=== PATIENT | female | born 1950 | race Caucasian/White ===

== ENCOUNTER 2018-08-29 08:28 | Outpatient (CLI) | payer OTHER ==
--- NOTE | 2018-08-29 12:55 | MMO ---
Bilateral MAMMO Bilat Screen [facility]. CLINICAL HISTORY: Patient is 68 years old and is seen for screening. The patient has the following family history of breast cancer: maternal aunt, liver and colon. The patient has no personal history of cancer. VIEWS: The views performed were: bilateral craniocaudal with tomosynthesis and bilateral mediolateral oblique with tomosynthesis. MAMMOGRAM FINDINGS: There are scattered fibroglandular densities. There are benign appearing calcifications seen in both breasts. There are no suspicious masses, suspicious calcifications, or new areas of architectural distortion. IMPRESSION: THERE IS NO MAMMOGRAPHIC EVIDENCE OF MALIGNANCY. A ROUTINE FOLLOW-UP MAMMOGRAM IN 1 YEAR IS RECOMMENDED. THE RESULTS OF THIS EXAM WERE SENT TO THE PATIENT. ACR BI-RADS Category 2 - Benign finding MAMMOGRAPHY NOTE: 1. A negative mammogram report should not delay a biopsy if a dominant of clinically suspicious mass is present. 2. Approximately 10% to 15% of breast cancers are not detected by mammography. 3. Adenosis and dense breasts may obscure an underlying neoplasm.
== END 2018-08-29 08:29 | disposition home or self-care (01) ==
LOC: BICMAMMO 08:28
PROVIDERS: ATTEND Nurse Practitioner Family
DX: Z12.31 Encounter for screening mammogram for malignant neoplasm of breast (principal); Z80.3 Family history of malignant neoplasm of breast; Z80.0 Family history of malignant neoplasm of digestive organs
CPT/HCPCS: 77063; 77067

== ENCOUNTER 2019-02-13 09:44 | Outpatient (CLI) | payer OTHER ==
--- NOTE | 2019-02-13 10:10 | BD ---
EXAM: DEXA bone density examination HISTORY: 68-year-old postmenopausal female for screening COMPARISON: None FINDINGS: L1--bone mineral density 0.797 g/sq cm; T score -1.8 L2--bone mineral density 0.809 g/sq cm; T score -2.0 L3--bone mineral density 0.817 g/sq cm; T score -2.4 L4--bone mineral density 0.940 g/sq cm; T score -1.1 Total L1-L4--bone mineral density 0.849 g/sq cm; T score -1.8 Left femoral neck--bone mineral density0.597; T score -2.3 Total proximal left femur--bone mineral density 0.787; T score -1.3 IMPRESSION: Osteopenia This patient has a 10 year WHO fracture risk of a major osteoporotic fracture of 13% and of a hip fracture of 3.0%.
== END 2019-02-13 09:45 | disposition home or self-care (01) ==
LOC: BICMAMMO 09:44
PROVIDERS: ATTEND Nurse Practitioner Family
DX: Z13.820 Encounter for screening for osteoporosis (principal); M85.89 Other specified disorders of bone density and structure, multiple sites
CPT/HCPCS: 77080

== ENCOUNTER 2019-05-01 06:59 | Outpatient (CLI) | payer MEDICARE ==
--- NOTE | 2019-05-01 08:59 | ULT ---
COMPLETE SONOGRAM ABDOMEN: HISTORY: Upper abdomen pain. FINDINGS: The gallbladder has a normal appearance. The common duct is 0.4 cm. The liver is within normal limits . No free fluid. The spleen, kidneys and visualized portions of the abdominal aorta, IVC and pancreas are unremarkable . IMPRESSION: Normal examination. POS: TPC
== END 2019-05-01 07:00 | disposition home or self-care (01) ==
LOC: SCSULT 06:59
PROVIDERS: ATTEND Nurse Practitioner Family
DX: R10.13 Epigastric pain (principal)
CPT/HCPCS: 93975

== ENCOUNTER 2019-05-29 12:57 | Outpatient (CLI) | payer MEDICARE ==
--- NOTE | 2019-05-29 14:18 | CT ---
EXAM: CT Chest W WO Con PROVIDED CLINICAL HISTORY: Chest pain COMPARISON: None FINDINGS: The heart, pericardium and great vessels demonstrate an unremarkable CT appearance. There is no evidence for thoracic lymph node enlargement. The airway appears patent and of normal caliber. There is a 6 mm average axial dimension noncalcified left upper lobe pulmonary nodule laterally. The lungs are otherwise free of significant opacity. No pleural thickening, pleural fluid or pneumothorax apparent. The visualized portions of the upper abdomen demonstrate an unremarkable CT appearance. Small hiatal hernia. The osseous structures demonstrate no concerning lytic or blastic lesions. IMPRESSION: 6 mm average axial dimension left upper lobe pulmonary nodule. Follow-up chest CT in 6 months is obi mmended.
[2019-05-29] MEDS ORDERED: Iopamidol-370 76% 500 ML 1 ML ONE (16:18)
== END 2019-05-29 12:58 | disposition home or self-care (01) ==
LOC: BICCT 12:57
PROVIDERS: ATTEND Internal Medicine Cardiovascular Disease
DX: R07.9 Chest pain, unspecified (principal); R91.1 Solitary pulmonary nodule
CPT/HCPCS: 71270; 82565; Q9967

== ENCOUNTER 2019-11-29 10:00 | Outpatient (CLI) | payer MEDICARE ==
--- NOTE | 2019-11-29 13:21 | CT ---
CT CHEST WITH AND WITHOUT CONTRAST: Date: 11/29/2019 Multiplanar reconstruction. INDICATION: Follow-up pulmonary nodule. Comparison made to CT chest of 05/29/2019. FINDINGS: The 6.0 mm nodule in the peripheral left upper lobe is again seen and is stable. Lung donohue otherwise remain clear. Mild interstitial thickening in the periphery of both lungs is ag ain seen and stable. Slightly more prominent interstitial thickening in the posterior lung bases agai n noted. Mediastinum is unremarkable. There is a small sliding diaphragmatic hernia, which appears unchanged. Nonspecific axillary lymph nodes appear stable. Nonspecific mediastinal and hilar lymph nodes are unc hanged. Pulmonary arteries are well-opacified. There is no evidence of proximal pulmonary embolus. The thorac ic aorta is unremarkable. Images through upper abdomen unremarkable. Osseous structures unremarkable. IMPRESSION: 6.0 mm nodule in the peripheral left upper lobe remains stable. Recommend continued follow-up with re peat noncontrast chest CT in 6 months. POS: CIRILO
== END 2019-11-29 10:01 | disposition home or self-care (01) ==
LOC: BICCT 10:00
PROVIDERS: ATTEND Nurse Practitioner Family
DX: R91.1 Solitary pulmonary nodule (principal)
CPT/HCPCS: 71270; 82565

== ENCOUNTER 2020-02-08 13:39 | Outpatient (CLI) | payer MEDICARE ==
--- NOTE | 2020-02-08 15:37 | CT ---
Exam: Lumbar spine CT without contrast HISTORY: Intractable back pain. FINDINGS: 5 lumbar type vertebra. Lumbar spine vertebral body height is maintained. No fracture. No spondylolis thesis or spondylolysis. Appropriate signal intensity visualized paraspinal muscles. Appropriate signal intensity visualized s olid organs. There are scattered diverticulosis. No diverticulitis. Presacral fat is preserved. Sacral ala are preserved. Vacuum joint phenomenon in bilateral sacroiliac joints. Intact visualized b ame pelvis T12-L1: No significant central canal stenosis or significant neural foraminal narrowing L1-L2: No significant central canal stenosis or significant neural foraminal narrowing L2-L3: Minimal left right paracentral disc bulge. No significant central canal stenosis. Patent bilat eral neural foramina. L3-L4: Broad-based disc bulge, ligament flavum thickening and facet hypertrophy result in minimal jamari tral canal stenosis. Minimal bilateral neural foraminal narrowing L4-L5: Broad-based disc bulge, ligament flavum thickening and facet hypertrophy result in mild centra l canal stenosis. Mild bilateral foraminal narrowing due to disc material L5-S1: Broad-based disc bulge minimally contacts the traversing left and right S1 nerve roots. No sig nificant obscuration. No significant stenosis of the thecal sac. 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 IMPRESSION: 1. No fracture 2. Degenerative changes in the lumbar spine as described above 2. Abnormal hypodensity involving the central left aspect of the S2 vertebral body with extension to left neural foramen. Tarlov cyst is favored. Consider MRI of the sacrum. CODE T Transcribed Date/Time: 02/08/2020 4:53 PM
== END 2020-02-08 13:40 | disposition home or self-care (01) ==
LOC: SCSCT 13:39
PROVIDERS: ATTEND Nurse Practitioner Family
DX: M54.5 Low back pain (principal); M53.3 Sacrococcygeal disorders, not elsewhere classified; M47.816 Spondylosis without myelopathy or radiculopathy, lumbar region; R93.7 Abnormal findings on diagnostic imaging of other parts of musculoskeletal system
CPT/HCPCS: 72131

== ENCOUNTER 2020-03-07 12:14 | Outpatient (CLI) | payer MEDICARE ==
[~2020-03-07 12:14] MED LIST: Magnevist 469MG/ML 20 ML VIAL ONE
--- NOTE | 2020-03-07 14:50 | MRI ---
MRI Pelvis W WO Con History: Cholelithiasis. Sacral pain Comparison: Lumbar spine CT February 08, 2020 Findings: Bones: Left S2 perineural cyst measures 1.7 cm in AP dimension with a transverse dimension up to 2.5 cm in a craniocaudal dimension of 2 cm. No abnormal enhancement to suggest a nerve sheath tumor. The left S2 nerve root is compressed anteriorly by this perineural cyst. No other perineural cyst is appreciated. No acute fracture or malalignment. No marrow infiltrative process. Benign chondroid lesion intertrochanteric portion left femur. Intrapelvic soft tissues: Susceptibility from surgical clips along the left adnexa. No free fluid wit hin the pelvis. Tendons: Moderate tendinosis and undersurface partial tearing of both common hamstring tendons. The i liopsoas tendons are intact. Rectus femoris tendons are intact. Abductor tendons are intact. Muscles: Muscle signal and bulk is normal. Impression: 1. Relatively large left S2 perineural Tarlov cyst causing anterior nerve root displacement in the os seous neural foramina. 2. No acute fracture, malalignment, or stress edema of the pelvis. 3. Mild posterior degenerative disc space height loss at L5/S1 with disc bulge.
--- NOTE | 2020-03-07 14:56 | MRI ---
MRI LUMBAR SPINE WITH AND WITHOUT CONTRAST: DATE: 03/07/2020 HISTORY: 69-year-old female with severe low back pain radiating to bilateral lower extremities COMPARISON: None TECHNIQUE: Multiple sequences obtained in axial and sagittal planes, pre and post IV injection of gadolinium-bas ed contrast agent. FINDINGS: Vertebral body heights are maintained. Alignment is normal. Disc spaces are maintained. There is no c entral spinal canal stenosis at any level. No high-grade neural foraminal stenosis at any level. There is an approximately 2 x 2 x 1.5 cm left-sided Tarlov cyst at the S2 level. It abuts and mildly displaces the left exiting S2 nerve root. No associated enhancement. Bone marrow signal is normal. Conus medullaris terminates at L1-2. Cauda equina is arranged in a symmetrical, normal distribution t hroughout the thecal sac. There are low-grade degenerative facet changes at L3-4, and especially L4-5. IMPRESSION: 1) left-sided S2 sacral Tarlov cyst. 2) the lumbar spine is normal.
== END 2020-03-07 12:15 | disposition home or self-care (01) ==
LOC: BICMRI 12:14
PROVIDERS: ATTEND Neurological Surgery
DX: M54.5 Low back pain (principal); M53.3 Sacrococcygeal disorders, not elsewhere classified; G96.191 Perineural cyst; M51.36 Other intervertebral disc degeneration, lumbar region; M51.26 Other intervertebral disc displacement, lumbar region
CPT/HCPCS: 72158; 72197; 82565; A9579

== ENCOUNTER 2020-06-06 11:04 | Outpatient (CLI) | payer MEDICARE ==
--- NOTE | 2020-06-06 13:49 | CT ---
CT Chest WO Con History: Pulmonary nodule Comparison: CT chest November 2019 and May 2019 Findings: Peripheral left anterior segment upper lobe nodule which is ovoid has not significantly ann wn and has few foci of high density calcifications within the suggesting developing calcifying granuloma. No new suspicious pulmonary nodule. No pneumothorax. No effusion. Airspace consolidation. No mediastinal adenopathy. Upper abdomen is without acute abnormality. The thoracic spine is without acute deformity. Few midthoracic spine compression deformities are old. Sternum and manubrium are intact. No acute rib fracture. Impression: No significant growth of the left upper lobe pulmonary nodule with few foci of punctate i ncreased density may reflect developing calcifications within a granuloma.
== END 2020-06-06 11:05 | disposition home or self-care (01) ==
LOC: BICCT 11:04
PROVIDERS: ATTEND Nurse Practitioner Family
DX: R91.1 Solitary pulmonary nodule (principal); R91.8 Other nonspecific abnormal finding of lung field
CPT/HCPCS: 71250

== ENCOUNTER 2020-06-11 07:04 | Day surgery (SDC) | payer MEDICARE ==
[2020-06-09 13:29] VITALS: BMI 26.6
[2020-06-11 08:04] VITALS: BP 118/69; TEMP 98.2
--- NOTE | 2020-06-11 09:16 | CT ---
EXAM: POSTMYELOGRAM LUMBAR SPINE CT: HISTORY: Lumbar radiculopathy. COMPARISON: None. FINDINGS: Appropriate attenuation of the paraspinal muscles and solid organs. Nonobstructing 1 mm calculus in t he right renal pelvis. Visualized aorta demonstrates minimal atherosclerosis. Sacral alae are preserved. Visualized SI joints demonstrate mild vacuum joint phenomenon. There is a hypodensity in the left S2 neural foramen measuring 1.6 x 1.6 cm. There is bony remodeling and scalloping. There is erosion of the posterior left S2 vertebral body. A benign cystic lesion is favor ed (Tarlov cyst). Conus medullaris terminates at the mid L1 level. T11-T12: No significant central canal stenosis or significant neural foraminal narrowing. L1-L2: No significant central canal stenosis or significant neural foraminal narrowing. L2-L3: No significant central canal stenosis or significant neural foraminal narrowing. L3-L4: Minimal vacuum disc phenomenon. No significant central canal stenosis. Mild bilateral foramina l narrowing predominantly due to disc material. L4-L5: Adequate disc space height. Broad-based disc bulge, mild ligament flavum thickening and facet hypertrophy result in mild central canal stenosis. Mild bilateral foraminal narrowing due to disc material. L5-S1: Broad-based disc bulge minimally contacts the ventral epidural fat. Disc material abuts but do es not obscure either traversing S1 nerve root. Right neural foramen is patent. Mild left neural foraminal narrowing. IMPRESSION: No significant central canal stenosis or significant neural foraminal narrowing throughout the lumbar spine. Transcribed Date/Time: 06/11/2020 9:27 AM
--- NOTE | 2020-06-11 09:20 | RAD ---
PROCEDURE: XR Myelogram Lumbar Spine PROVIDED CLINICAL HISTORY: Low back pain and left lower extremity pain. Tarlov cyst at S2. COMPARISON: None TECHNIQUE: The procedure including the risks and complications were explained to the patient, and informed conse nt was obtained. The patient was placed on the fluoroscopy table in the prone position. An area overlying the L2-3 interspace was marked, and the area was meticulously prepped and draped in usual s terile fashion. The skin and subcutaneous tissues were infiltrated with buffered 1% lidocaine for local anesthesia. A 22-gauge spinal needle was advanced into the thecal sac at the L2-3 level. The inner stylette was r emoved with a return of clear cerebral spinal fluid. Approximately 8 mL of Omnipaque 240 contrast was instilled into the thecal sac. The inner stylette was replaced, and the needle was removed. Hemostasis was achieved with direct pressure, dry sterile dressing was placed. AP and lateral views lumbar spine were obtained prior to the procedure which demonstrate normal heigh ts of the vertebral bodies and intervertebral disc spaces. Mild facet degenerative change seen in the lower lumbar spine. There is no fracture or subluxation. Surgical clips overlie the left hemipelv is. Fluoroscopy: Time-0.7 minutes Dose 100.7 microGy meter squared IMPRESSION: Technically successful lumbar myelogram. Please see CT lumbar spine postmyelogram for further details .
[2020-06-11] MEDS ORDERED: Iopamidol-M 200 41% 10 ML VIAL FS ONE (14:26)
== END 2020-06-11 09:45 | disposition home or self-care (01) ==
LOC: RAD 07:04
PROVIDERS: ATTEND Neurological Surgery
PROC: B02B1ZZ Computerized Tomography (CT Scan) of Spinal Cord using Low Osmolar Contrast (ICD-10-PCS; principal; 2020-06-11)
DX: M54.16 Radiculopathy, lumbar region (principal); M48.061 Spinal stenosis, lumbar region without neurogenic claudication; M48.07 Spinal stenosis, lumbosacral region; I70.0 Atherosclerosis of aorta; G96.191 Perineural cyst; I10 Essential (primary) hypertension; I25.10 Atherosclerotic heart disease of native coronary artery without angina pectoris; F41.9 Anxiety disorder, unspecified; E03.9 Hypothyroidism, unspecified; E78.00 Pure hypercholesterolemia, unspecified; Z79.02 Long term (current) use of antithrombotics/antiplatelets; Z79.82 Long term (current) use of aspirin; Z79.899 Other long term (current) drug therapy; Z95.5 Presence of coronary angioplasty implant and graft
CPT/HCPCS: 62304; 72126; 72132

== ENCOUNTER 2020-07-09 13:45 | Inpatient (IN) | payer MEDICARE ==
[2020-07-11 12:49] VITALS: BMI 26.6
[2020-07-14] MEDS ORDERED: Fentanyl 100 MCG/2 ML VIAL ONE ×2 (06:56→09:35)
[2020-07-14] MEDS ORDERED: Midazolam HCl 2 mg/2 ml Vial ONE (06:56)
[2020-07-14] MEDS ORDERED: Morphine 4 MG/ML VIAL ONE (06:56)
[2020-07-14] MEDS ORDERED: Ondansetron PF 4 MG/2 ML Vial ONE ×2 (07:33→10:25)
[2020-07-14] MEDS ORDERED: Metoclopramide HCl 10 MG/2 ML VIAL ONE (07:47)
[2020-07-14] MEDS ORDERED: Propofol 500 MG/50 ML VIAL ONE (07:47)
[2020-07-14] MEDS ORDERED: Promethazine HCl 25 MG/ML VIAL ONE (07:48)
[2020-07-14] MEDS ORDERED: SUGAMMADEX SODIUM 200 MG/2 ML VIAL ONE (09:04)
--- NOTE | 2020-07-14 09:18 | OP ---
DATE OF PROCEDURE: 07/14/2020 ELECTRONIC ENGINEERING DRAFTSPERSON: Gayla Garcia PA-C PROCEDURE PERFORMED: Sacral laminectomy, removal of S2 spinal cyst. DESCRIPTION OF PROCEDURE: The patient was brought to the operating room and intubated. She was rolled in a prone position on gel-filled chest rolls. An incision was made over the sacrum and the sacrum was fully exposed to the inferior margin of L5. We did encounter the region in the left S2-S3 region, where bony erosion had occurred. We performed a sacral laminectomy exposing the normal midline and identified the pathology in the region of the left S2 and S3 region. She did have the appearance of a perineural cyst and was emanating from the dorsal left S2 root sleeve. We defined this root sleeve, ligated with a Ligaclip and detached it from the thecal sac. No CSF was witnessed. We next deflated this cyst. There were no obvious meaty or concerning sections of the cyst wall. The nerve root itself did seem slightly enlarged and this was partially resected along with surrounding cyst wall and sent for pathologic examination. The remaining nerve root stump was coagulated extensively. The remaining cyst wall was also coagulated. Gelfoam was used for hemostasis. The wound was then extensively irrigated and MAC hemostasis was secured. Vancomycin powder was applied and the wound was closed in anatomic layers over drain. Job ID: [id number]
[2020-07-14] MEDS ORDERED: Promethazine HCl 25 MG/ML VIAL SLOW IVP PRN (09:21)
[2020-07-14] MEDS ORDERED: HYDROmorphone 2 MG/ML VIAL SLOW IVP PRN (09:21)
[2020-07-14] MEDS ORDERED: Ondansetron HCl/PF 4 MG/2 ML Vial IVP PRN (09:21)
[2020-07-14] MEDS ORDERED: Morphine Sulfate 2 MG/ML SYRINGE SLOW IVP PRN (09:21)
[2020-07-14] MEDS ORDERED: Promethazine HCl 25 MG/ML VIAL IM PRN ×2 (09:21→10:00)
[2020-07-14] MEDS ORDERED: Ondansetron PF 4 MG/2 ML Vial IM PRN (09:56)
[2020-07-14] MEDS ORDERED: tiZANidine HCl 4 MG TAB PO PRN (10:00)
[2020-07-14] MEDS ORDERED: diphenhydrAMINE 50 MG/ML VIAL IVP PRN (10:00)
[2020-07-14] MEDS ORDERED: Promethazine HCl 12.5 MG SUPP PR PRN (10:00)
[2020-07-14] MEDS ORDERED: Morphine 4 MG/ML VIAL SLOW IVP PRN (10:00)
[2020-07-14] MEDS ORDERED: Acetaminophen 650 MG Suppository PR PRN (10:00)
[2020-07-14] MEDS ORDERED: Mag-Al 1200 mg/1200 mg/30 ML UDCUP PO PRN (10:00)
[2020-07-14] MEDS ORDERED: diphenhydrAMINE 25 MG CAP PO PRN (10:00)
[2020-07-14] MEDS ORDERED: Milk Of Magnesia 30 ML UDCUP PO PRN (10:00)
[2020-07-14] MEDS ORDERED: Acetaminophen 325 MG TAB PO PRN (10:00)
[2020-07-14] MEDS ORDERED: Morphine 2 MG/ML VIAL SLOW IVP PRN (10:00)
[2020-07-14] MEDS ORDERED: Glycopyrrolate 0.2 MG/ML 5 ML SYRINGE ONE (10:25)
[2020-07-14] MEDS ORDERED: Rocuronium Bromide 10 MG/ML (10ML VIAL) ONE (10:25)
[2020-07-14] MEDS ORDERED: Dexamethasone 20 MG/5 ML VIAL ONE (10:25)
[2020-07-14] MEDS ORDERED: Ketorolac Tromethamine 30 MG/ML VIAL ONE (10:25)
[2020-07-14] MEDS ORDERED: PROPOFOL 200 MG/20 ML VIAL ONE (10:25)
[2020-07-14] MEDS ORDERED: PHENYLEPHRINE-NS 100 MCG/ML 10 ML SYRINGE ONE (10:25)
[2020-07-14] MEDS: Promethazine 25 MG TAB PO PRN (15:27)
[2020-07-14] MEDS: Sodium Chloride 0.9% 1,000 ML IV SCH (15:29)
[2020-07-14] MEDS: Acetaminophen/Codeine 30-300mg Tablet PO PRN (15:29)
[2020-07-14] MEDS: CEFAZOLIN 2 GM in Premix Bag 1 BAG IVPB SCH (15:30)
--- NOTE | 2020-07-14 19:47 | PDOC.HHP ---
Hospitalist SARWAT Back pain History of Present Illness: Patient is 70 year-old female with PMH of HTN, CAD (stent placement in May), hypothyroidism, and Tarlov cyst who is admitted after sacral laminectomy and removal of S2 spinal cyst. We are consulted for medical management. Patient was seen at the PACU. She reports back pain and nausea, othewise no complaint. Allergies/Adverse Reactions: Allergy/AdvReac Type Severity Reaction Status Date / Time gabapentin AdvReac Intermediate Headache Verified 06/09/20 13:31 tramadol AdvReac Intermediate Headache Verified 06/09/20 13:31 Home Medications: Medication Instructions Recorded Confirmed Type Aspirin [Ecotrin] 81 mg PO DAILY 06/09/20 07/11/20 History Atorvastatin Calcium [Lipitor] 40 mg PO DAILY 06/09/20 07/11/20 History Clopidogrel Bisulfate [Plavix] 75 mg PO DAILY 06/09/20 07/11/20 History Glucosamine/D3/Boswellia Mary 1 each PO BID 06/09/20 07/11/20 History [Glucosamine Complex-Vit D3 Cpt] Levothyroxine Sodium 50 mcg PO DAILY 06/09/20 07/11/20 History [Levothyroxine] Metoprolol Succinate [Toprol XL] 12.5 mg PO HS 06/09/20 07/11/20 History Multivitamin [Daily Multiple 1 each PO DAILY 06/09/20 07/11/20 History Vitamin] Ubidecarenone [Co Q-10] 200 mg PO DAILY 06/09/20 07/11/20 History Ondansetron [Zofran ODT] 4 mg PO Q6HR PRN #20 tab 07/14/20 Rx tiZANidine HCl [Tizanidine HCl] 4 mg PO Q6H #60 tablet 07/14/20 Rx Past History: PMHx; HTN, CAD (stent placement in May 2019), hypothyroidism, and Tarlov cyst PSHx: Hysterectomy, appendectomy FHx: Father: Cancer and heart disease Mother; kidney disease Social: denies smoking, alcohol, or drug use Hospitalist SARWAT ROS Constitutional: denies: fever, chills Eyes: denies: vision change ENT: denies: throat pain Respiratory: denies: shortness of breath Cardiovascular: denies: chest pain Gastrointestinal: reports: nausea. denies: vomiting Genitourinary: denies: dysuria Musculoskeletal: reports: other (Positive for back pain) Hospitalist Exam Vitals: Vital Signs (12 hours) Temp Pulse Resp BP Pulse Ox 07/14/20 19:04 97.9 F 55 L 16 96/62 93 L 07/14/20 13:10 97.9 F 73 18 120/72 98 Weight Weight 160 lb General Appearance: NAD Eye: PERRL ENT: moist mucosa Neck: supple Heart: RRR, no murmur Respiratory: CTAB, no tachypnea Gastrointestinal: soft, non-tender, non-distended Extremities: no edema Neurological: normal sensation to touch Musculoskeletal: normal strength (strength on the LE not examined as patient s/p surgery) Psychiatric: normal affect Hospitalist H&P A/P (1) HTN (hypertension) Code(s): I10 - ESSENTIAL (PRIMARY) HYPERTENSION Status: Chronic Assessment and Plan: Plan; -continue Toprol XL 12.5 mg daily (2) CAD (coronary artery disease) Code(s): I25.10 - ATHSCL HEART DISEASE OF [place] CORONARY ARTERY W/O ANG PCTRS Status: Chronic Assessment and Plan: Aspirin and Plavix have been on hold for 1 week in preparation for her surgery. Plan: -continue Toprol XL and Lipitor -will defer timing of restarting aspirin and Plavix to surgery (3) Hypothyroidism Code(s): E03.9 - HYPOTHYROIDISM, UNSPECIFIED Status: Chronic Assessment and Plan: Plan: -cont Levothyroxin
[2020-07-15] MEDS: Acetaminophen/Codeine 30-300mg Tablet PO PRN ×3 (00:03→11:16)
[2020-07-15] MEDS: Promethazine 25 MG TAB PO PRN ×2 (00:03→11:15)
[2020-07-15] MEDS: CEFAZOLIN 2 GM in Premix Bag 1 BAG IVPB SCH ×2 (00:04→07:48)
[2020-07-15] MEDS: Sodium Chloride 0.9% 1,000 ML IV SCH ×2 (00:23→14:00)
[2020-07-15] MEDS: Ondansetron ODT 4 MG TAB PO PRN (08:26)
--- NOTE | 2020-07-15 09:04 | PRG ---
DATE OF SERVICE: 07/15/2020 The patient is postoperative day #1, status post sacral laminectomy and cyst resection. Following the surgery, she was transitioned to the Med/Surg floor, where her pain has been well controlled with p.o. medication, she is tolerating a regular diet, and she is voiding appropriately. She is ambulating short distance back and forth to the bathroom and her room. Her CISCO had 30 mL out overnight. There is a small amount of dark red in the CISCO drain. She is moving her legs easily in the bed. No focal motor weakness. Sensation is intact to light touch. The patient doing well postoperatively. I will go ahead and remove the CISCO drain. She still has not mobilized too much, so we will keep her another day to work on pain control and continue mobilization. I anticipate home tomorrow. Job ID: [id number]
[2020-07-15 09:34] LABS: #Monocytes 0.5 thou/uL (0.11-0.59); #Neutrophils 7.2 thou/uL (1.40-6.50); %Basophils 0.1 % (0.0-1.0); %Eosinophils 0.1 % (0.0-10.0); %Lymphocytes 11.1 % (21.0-51.0); %Monocytes 5.9 % (0.0-10.0); %Neutrophils 82.8 % (42.0-75.0); Hemoglobin 9.8 g/dL (12.0-16.0); Mean Corpuscular HGB CONC 34.2 g/dL (32.0-36.0); Mean Corpuscular Hemoglobin 30.6 pg (27.0-31.0); Mean Corpuscular Volume 89.4 fL (78.0-98.0); Mean Platelet Volume 6.2 fL (7.4-10.4); Platelet Count 165 thou/uL (130-400); RBC Distribution Width 11.9 % (11.5-14.5); White Blood Cell (WBC) Count 8.7 thou/uL (4.8-10.8)
[2020-07-15 09:53] LABS: Anion Gap 10 mmol/L (10-20); BUN (Urea Nitrogen) 13 mg/dL (9.8-20.1); Calc. Creatinine Clearance 69 mL/min (70-130); Calcium 8.2 mg/dL (7.8-10.44); Carbon Dioxide 27 mmol/L (23-31); Chloride 110 mmol/L (98-107); Glucose 102 mg/dL (83-110); Potassium 4.2 mmol/L (3.5-5.1); Sodium 143 mmol/L (136-145)
--- NOTE | 2020-07-15 14:52 | PDOC.HOSPP ---
- Subjective Encounter Date: 07/15/20 Encounter Time: 10:45 Subjective: Patient seen this morning. She e is able to walk around with physical therapy she has no acute complaints - Objective Vital Signs & Weight: Vital Signs (12 hours) Temp Pulse Resp BP BP Pulse Ox 07/15/20 11:00 98.2 F 60 18 105/64 98 07/15/20 07:29 98.1 F 69 18 101/53 L 97 07/15/20 03:21 97.9 F 65 16 97/60 98 Weight Weight 160 lb I&O: 07/14/20 07/15/20 07/16/20 06:59 06:59 06:59 Intake Total 450 Output Total 55 Balance 395 Result Diagrams: 07/15/20 09:22 07/15/20 09:22 Hospitalist ROS - Medication Medications: Active Medications Generic Name Dose Route Start Last Admin Trade Name Freq PRN Reason Stop Dose Admin Acetaminophen/Codeine Phosphate 1 tab 07/14/20 10:00 07/15/20 11:16 Acetaminophen/Codeine 30-300mg Tablet PO 1 tab Q3H PRN Administration PAIN (1-3) Acetaminophen/Codeine Phosphate 2 tab 07/14/20 10:00 07/15/20 00:03 Acetaminophen/Codeine 30-300mg Tablet PO 2 tab Q3H PRN Administration PAIN (4-6) Sodium Chloride 1,000 mls @ 75 mls/hr 07/14/20 10:00 07/15/20 14:00 Normal Saline 0.9% IV Not Given .[id number] TYLER Ondansetron HCl 4 mg 07/15/20 07:57 07/15/20 08:26 Ondansetron Odt 4 Mg Tab PO 4 mg Q6H PRN Administration Nausea/Vomiting Promethazine HCl 12.5 mg 07/14/20 10:00 07/15/20 11:15 Promethazine 25 Mg Tab PO 12.5 mg Q4H PRN Administration Nausea/Vomiting Sodium Chloride 10 ml 07/14/20 21:00 07/15/20 08:27 Flush - Normal Saline 10 Ml Syringe IVF Not Given Q12HR TYLER Tizanidine HCl 4 mg 07/14/20 10:00 07/14/20 13:53 Tizanidine Hcl 4 Mg Tab PO 4 mg Q6H PRN Administration MUSCLE SPASM Hospitalist Exam Vitals: Vital Signs (12 hours) Temp Pulse Resp BP BP Pulse Ox 07/15/20 11:00 98.2 F 60 18 105/64 98 07/15/20 07:29 98.1 F 69 18 101/53 L 97 07/15/20 03:21 97.9 F 65 16 97/60 98 Weight Weight 160 lb General Appearance: NAD, awake alert Eye: PERRL ENT: normocephalic atraumatic Neck: supple Heart: RRR, normal peripheral pulses Respiratory: CTAB, normal chest expansion Gastrointestinal: soft, normal bowel sounds Neurological: cranial nerve grossly intact, no focal deficits Psychiatric: A&O x 3 Hosp A/P - Plan 70-year-old female presented with Status post sacral laminectomy and cyst resection [facility] following with us. -CICSO drain removed Coronary artery disease aspirin and Plavix was on hold. -Continue with Lipitor and hold the Toprol as her blood pressure is on the low side. Hypothyroidism continue with levothyroxine. Hypertension she is on the low normal side -Likely due to several pain medications she is on. -Toprol is on hold Continue with physical therapy. And for discharge by neurosurgery tomorrow.
--- NOTE | 2020-07-15 15:34 | PRG ---
DATE OF SERVICE: 07/15/2020 SUBJECTIVE: Ms. Wu is doing quite well. Postoperative day 1 from resection of sacral cyst. The radicular and neurologic pain she was having has largely resolved. She is having mostly just incisional pain. Her CISCO output remains reasonable and we will plan to discontinue this tomorrow. Await final pathology. We will continue to mobilize for dismissal. Job ID: [id number]
[2020-07-15] MEDS ORDERED: Atorvastatin Calcium 40 MG TAB PO SCH (21:00)
[2020-07-16] MEDS: Acetaminophen/Codeine 30-300mg Tablet PO PRN ×2 (01:23→11:43)
[2020-07-16] MEDS: Ondansetron ODT 4 MG TAB PO PRN ×2 (01:25→11:43)
[2020-07-16] MEDS: Sodium Chloride 0.9% 1,000 ML IV SCH (04:07)
[2020-07-16] MEDS ORDERED: Levothyroxine Sodium 50 MCG TAB PO SCH (06:00)
[2020-07-16 07:41] VITALS: BP 112/68; TEMP 98.2
--- NOTE | 2020-07-16 08:51 | DIS ---
DATE OF ADMISSION: 07/14/2020 DATE OF DISCHARGE: 07/16/2020 PROCEDURE: Sacral laminectomy and cyst resection. DISCHARGE SUMMARY: The patient is a 70-year-old female who was recently evaluated in our office for progressive back pain with radiation into the abdomen, back and proximal legs. She was found to have a sacral cyst which failed treatment with conservative management, and pain management. She underwent sacral laminectomy and cyst resection on 07/14/2020. Following the surgery, she was transitioned to the Med/Surg floor, where pain has been well controlled with p.o. medications, she is tolerating a regular diet, and she is voiding appropriately. Her preoperative symptoms have improved significantly and she is now having mostly postoperative incisional pain. She is not having any bowel or bladder issues or saddle anesthesia. She is ambulating well. CISCO drain removed on postoperative day #1. We will go ahead and dismiss her to home. I have discussed home care precautions. We will follow up with the patient in 2 weeks. Job ID: [id number]
--- NOTE | 2020-07-16 12:59 | PDOC.HOSPP ---
- Subjective Encounter Date: 07/16/20 Encounter Time: 09:55 Subjective: Patient seen this morning she appears well she is going for walk in the [place] with physical therapy She has no complaints of pain anywhere. - Objective Vital Signs & Weight: Vital Signs (12 hours) Temp Pulse Resp BP Pulse Ox 07/16/20 07:39 98.2 F 81 16 112/68 94 L 07/16/20 03:08 98.1 F 95 18 155/76 H 98 Weight Weight 160 lb I&O: 07/15/20 07/16/20 07/17/20 06:59 06:59 06:59 Intake Total 450 Output Total 55 Balance 395 Result Diagrams: 07/15/20 09:22 07/15/20 09:22 Hospitalist Exam Vitals: Vital Signs (12 hours) Temp Pulse Resp BP Pulse Ox 07/16/20 07:39 98.2 F 81 16 112/68 94 L 07/16/20 03:08 98.1 F 95 18 155/76 H 98 Weight Weight 160 lb General Appearance: NAD, awake alert Eye: PERRL ENT: normocephalic atraumatic Neck: supple Heart: RRR, normal peripheral pulses Respiratory: CTAB, normal chest expansion Gastrointestinal: soft, normal bowel sounds Neurological: cranial nerve grossly intact, no focal deficits Psychiatric: A&O x 3 Hosp A/P - Plan 70-year-old female presented with Status post sacral laminectomy and cyst resection [facility] following with us. -CISCO drain removed Coronary artery disease aspirin and Plavix was on hold. -Continue with Lipitor and hold the Toprol as her blood pressure is on the low side. Hypothyroidism continue with levothyroxine. Hypertension she is on the low normal side -Likely due to several pain medications she is on. -Toprol is on hold Continue with physical therapy. Possible discharge today.
--- NOTE | 2020-07-17 20:56 | EKG ---
Test Reason : Blood Pressure : / mmHG Vent. Rate : 073 BPM Atrial Rate : 073 BPM P-R Int : 142 ms QRS Dur : 076 ms QT Int : 394 ms P-R-T Axes : 042 016 049 degrees QTc Int : 434 ms Normal sinus rhythm T wave abnormality, consider anterior ischemia Abnormal ECG When compared with ECG of 11-JUL-2020 17:10, No significant change was found Confirmed by Ara VERGARA ([id number]) on 07/17/2020 8:55:55 PM Referred By: WARD Confirmed By:Ara VERGARA
== END 2020-07-16 12:00 | disposition home or self-care (01) | DRG 517 ==
LOC: SURG A 07-14 05:10 → SURG B 07-14 13:43
PROVIDERS: ADMIT Neurological Surgery; ATTEND Neurological Surgery
PROC: 01NR0ZZ Release Sacral Nerve, Open Approach (ICD-10-PCS; principal; 2020-07-14)
DX: M54.16 Radiculopathy, lumbar region (principal); I10 Essential (primary) hypertension; I25.10 Atherosclerotic heart disease of native coronary artery without angina pectoris; E03.9 Hypothyroidism, unspecified; Z95.5 Presence of coronary angioplasty implant and graft; Z88.8 Allergy status to other drugs, medicaments and biological substances; Z79.82 Long term (current) use of aspirin; Z79.899 Other long term (current) drug therapy; Z98.890 Other specified postprocedural states; Z90.49 Acquired absence of other specified parts of digestive tract; Z90.710 Acquired absence of both cervix and uterus; Z80.9 Family history of malignant neoplasm, unspecified; Z82.49 Family history of ischemic heart disease and other diseases of the circulatory system; Z84.1 Family history of disorders of kidney and ureter
CPT/HCPCS: 36415; 76000; 80048; 85025; 88305; 88341; 88342; 93005; 93010; J0690; J1100; J1885; J2250; J2270; J2405; J2550; J2704; J2765; J3010; J3370; Q0162; Q0169

== ENCOUNTER 2020-12-02 08:21 | Outpatient (CLI) | payer MEDICARE | END 2020-12-02 08:22 | disposition home or self-care (01) | LOC: RAD-FRANK 08:21 | PROVIDERS: ATTEND Nurse Practitioner Family | DX: R07.81 Pleurodynia (principal) | CPT/HCPCS: 71046 ==

== ENCOUNTER 2021-07-15 10:45 | Outpatient (CLI) | payer MEDICARE | END 2021-07-15 10:46 | disposition home or self-care (01) | LOC: BICCT 10:45 | PROVIDERS: ATTEND Internal Medicine Cardiovascular Disease | DX: R91.1 Solitary pulmonary nodule (principal); K44.9 Diaphragmatic hernia without obstruction or gangrene | CPT/HCPCS: 71250 ==

== ENCOUNTER 2021-10-23 10:35 | Emergency (ER) | payer MEDICARE ==
[~2021-10-23 10:35] MED LIST changes: +Iopamidol 370 76% 100 ML VIAL ONE; -Magnevist 469MG/ML 20 ML VIAL ONE
[2021-10-23 11:06] LABS: #Lymphocytes 0.9 thou/uL (1.20-3.40); #Monocytes 0.4 thou/uL (0.11-0.59); #Neutrophils 4.2 thou/uL (1.40-6.50); %Basophils 0.1 % (0.0-1.0); %Eosinophils 0.2 % (0.0-10.0); %Lymphocytes 16.3 % (21.0-51.0); %Monocytes 6.6 % (0.0-10.0); %Neutrophils 76.7 % (42.0-75.0); Hemoglobin 13.3 g/dL (12.0-16.0); Mean Corpuscular Hemoglobin 29.4 pg (27.0-31.0); Mean Platelet Volume 6.5 fL (7.4-10.4); Platelet Count 160 thou/uL (130-400); RBC Distribution Width 13.3 % (11.5-14.5); Red Blood Cell (RBC) Count 4.53 mill/uL (4.20-5.40); White Blood Cell (WBC) Count 5.4 thou/uL (4.8-10.8)
[2021-10-23] MEDS ORDERED: Ondansetron PF 4 MG/2 ML Vial ONE (11:12)
[2021-10-23 11:28] LABS: INR-International Normal Ratio 0.9; PTT 23.2 sec (22.9-36.1); Prothrombin Time 12.1 sec (12.0-14.7)
[2021-10-23 11:30] LABS: ALT (SGPT) 17 U/L (8-55); AST (SGOT) 21 U/L (5-34); Albumin 4.1 g/dL (3.4-4.8); Alkaline Phosphatase 102 U/L (40-110); Anion Gap 15 mmol/L (10-20); BUN (Urea Nitrogen) 9 mg/dL (9.8-20.1); Bilirubin, Total 0.9 mg/dL (0.2-1.2); Calc. Creatinine Clearance 0 mL/min (70-130); Calcium 9.3 mg/dL (7.8-10.44); Carbon Dioxide 19 mmol/L (23-31); Chloride 106 mmol/L (98-107); Glucose 114 mg/dL (83-110); Potassium 3.6 mmol/L (3.5-5.1); Protein, Total 7.1 g/dL (5.8-8.1); Sodium 136 mmol/L (136-145)
== END 2021-10-23 14:18 | disposition home or self-care (01) ==
LOC: ERS 10:35
DX: R19.7 Diarrhea, unspecified (principal); I10 Essential (primary) hypertension; E78.00 Pure hypercholesterolemia, unspecified; I25.2 Old myocardial infarction; Z79.82 Long term (current) use of aspirin; Z79.899 Other long term (current) drug therapy
CPT/HCPCS: 36415; 74177; 80053; 85025; 85610; 85730; 86850; 86900; 86901; 93005; 96361; 96374; J2405

== ENCOUNTER 2022-08-18 16:39 | Emergency (ER) | payer OTHER ==
[~2022-08-18 16:39] MED LIST changes: -Iopamidol 370 76% 100 ML VIAL ONE; +Iopamidol-370 76% 500 ML MDV (1 ML CHARGE) ONE
[2022-08-18 18:37] LABS: #Eosinphils 0.1 thou/uL (0.0-0.7); #Lymphocytes 1.5 thou/uL (1.20-3.40); #Monocytes 0.6 thou/uL (0.11-0.59); %Basophils 0.5 % (0.0-1.0); %Eosinophils 0.8 % (0.0-10.0); %Lymphocytes 20.8 % (21.0-51.0); Hemoglobin 11.5 g/dL (12.0-16.0); Mean Corpuscular HGB CONC 33.1 g/dL (32.0-36.0); Mean Corpuscular Volume 93.8 fl (78.0-98.0); Mean Platelet Volume 5.9 fL (7.4-10.4); Platelet Count 187 10x3/uL (130-400); RBC Distribution Width 11.7 % (11.5-14.5); Red Blood Cell (RBC) Count 3.72 mill/uL (4.20-5.40); White Blood Cell (WBC) Count 7.2 10x3/uL (4.8-10.8)
[2022-08-18] MEDS ORDERED: Ondansetron PF 4 MG/2 ML Vial ONE (19:03)
[2022-08-18] MEDS ORDERED: FENTANYL 50 MCG/ML 1 ML VIAL ONE (19:06)
[2022-08-18 19:37] LABS: Anion Gap 22 mmol/L (10-20); BUN (Urea Nitrogen) 13 mg/dL (9.8-20.1); Bilirubin, Total 0.6 mg/dL (0.2-1.2); Calc. Creatinine Clearance 0 mL/min (70-130); Calcium 9.3 mg/dL (7.8-10.44); Carbon Dioxide 15 mmol/L (23-31); Chloride 107 mmol/L (98-107); Estimated GFR 65; Glucose 102 mg/dL (83-110); Potassium 4.5 mmol/L (3.5-5.1); Protein, Total 6.9 g/dL (5.8-8.1); Sodium 139 mmol/L (136-145)
[2022-08-18 19:38] LABS: ALT (SGPT) 18 U/L (8-55); AST (SGOT) 26 U/L (5-34); Albumin 4.1 g/dL (3.4-4.8); Alkaline Phosphatase 86 U/L (40-110); CK (CPK) 57 U/L (29-168); Globulin 2.8 g/dL (2.4-3.5); Lipase 18 U/L (8-78)
[2022-08-18 22:14] LABS: Bilirubin Negative (Negative); Blood, Urine Negative (Negative); Clarity Clear (Clear); Glucose, Urine (Dipstick) Normal (Negative); Ketone, Urine Negative (Negative); Leukocyte Negative Leu/uL (Negative); Nitrite Negative (Negative); Protein, Urine (Dipstick) Negative (Neg-Trace); Specific Gravity, Urine 1.013 (1.002-1.036); Urobilinogen Normal mg/dL (Less than 2); pH, Urine 6.5 (5.0-9.0)
[2022-08-18 22:20] LABS: Lactic Acid 1.2 mmol/L (0.5-2.2)
== END 2022-08-18 23:53 | disposition home or self-care (01) ==
LOC: ERS 16:39
DX: R53.1 Weakness (principal); E86.0 Dehydration; I10 Essential (primary) hypertension; E78.00 Pure hypercholesterolemia, unspecified; Z79.899 Other long term (current) drug therapy
CPT/HCPCS: 71045; 74177; 80053; 81003; 82550; 83605; 83690; 84484; 85025; 87040; 87086; 93005; J3010; 36415; 96374; 96375; J2405; Q9967

== ENCOUNTER 2025-01-29 14:33 | Inpatient (IN) | payer MEDICARE, OTHER ==
[2025-01-29 16:06] LABS: #Basophils Less than 0.03 10x3/uL (0.0-0.2); #Eosinophils Less than 0.03 10x3/uL (0.0-0.7); #Monocytes 0.51 10x3/uL (0.11-0.59); #Neutrophils 6.12 10x3/uL (1.40-6.50); %Basophils 0.1 % (0.0-1.0); %Eosinophils 0.3 % (0.0-10.0); %Lymphocytes 14.4 % (21.0-51.0); %Monocytes 6.5 % (0.0-10.0); %Neutrophils 78.4 % (42.0-75.0); Hematocrit 35.9 % (36.0-47.0); Hemoglobin 12.0 g/dL (12.0-16.0); Mean Corpuscular Hemoglobin 29.3 pg (27.0-31.0); Mean Corpuscular Volume 87.8 fL (78.0-98.0); Platelet Count 149 10x3/uL (130-400); Red Blood Cell (RBC) Count 4.09 mill/uL (4.20-5.40); White Blood Cell (WBC) Count 7.80 10x3/uL (4.8-10.8)
[2025-01-29 16:32] LABS: ALT (SGPT) 16 U/L (Less than 34); AST (SGOT) 20 U/L (11-34); Albumin 3.8 g/dL (3.1-4.5); Alkaline Phosphatase 99 U/L (40-110); Anion Gap 15 mmol/L (10-20); BUN (Urea Nitrogen) 13 mg/dL (9.8-20.1); Bilirubin, Total 0.6 mg/dL (0.3-1.2); Calc. Creatinine Clearance 0 mL/min (70-130); Calcium 9.4 mg/dL (7.8-10.44); Carbon Dioxide 25 mmol/L (23-31); Chloride 103 mmol/L (98-107); Globulin 2.8 g/dL (2.4-3.5); Glucose 101 mg/dL (83-110); Lipase 28 U/L (8-78); Magnesium 2.1 mg/dL (1.6-2.6); Potassium 4.2 mmol/L (3.5-5.1); Sodium 139 mmol/L (136-145)
[2025-01-29] MEDS ORDERED: Senokot S 8.6-50 MG TAB PO PRN (18:44)
[2025-01-29] MEDS ORDERED: Ondansetron PF 4 MG/2 ML Vial IVP PRN (18:44)
[2025-01-29] MEDS ORDERED: Melatonin 3 MG TAB PO PRN (18:44)
[2025-01-29] MEDS ORDERED: Nitroglycerin 0.4 MG TAB (25 Tab Bottle) SL PRN (18:44)
[2025-01-29 18:47] VITALS: BMI 27.3
[2025-01-29] MEDS: Enoxaparin 80 MG (0.8 mL) SYRINGE SC SCH (20:54)
[2025-01-29] MEDS: Metoprolol Succinate XL 25 MG ER.TAB PO SCH (21:40)
[2025-01-30 04:43] LABS: #Basophils Less than 0.03 10x3/uL (0.0-0.2); #Eosinophils Less than 0.03 10x3/uL (0.0-0.7); #Monocytes 0.59 10x3/uL (0.11-0.59); #Neutrophils 6.79 10x3/uL (1.40-6.50); %Basophils 0.2 % (0.0-1.0); %Eosinophils 0.1 % (0.0-10.0); %Lymphocytes 13.2 % (21.0-51.0); %Monocytes 6.9 % (0.0-10.0); %Neutrophils 79.2 % (42.0-75.0); Hematocrit 34.2 % (36.0-47.0); Hemoglobin 11.2 g/dL (12.0-16.0); Mean Corpuscular Hemoglobin 29.1 pg (27.0-31.0); Mean Corpuscular Volume 88.8 fL (78.0-98.0); Platelet Count 137 10x3/uL (130-400); Red Blood Cell (RBC) Count 3.85 mill/uL (4.20-5.40); White Blood Cell (WBC) Count 8.57 10x3/uL (4.8-10.8)
[2025-01-30 05:05] LABS: Anion Gap 16 mmol/L (10-20); BUN (Urea Nitrogen) 14 mg/dL (9.8-20.1); Calc. Creatinine Clearance 65 mL/min (70-130); Calcium 8.9 mg/dL (7.8-10.44); Carbon Dioxide 22 mmol/L (23-31); Cardiac Risk 2.4 (Less than 4.5); Chloride 105 mmol/L (98-107); Cholesterol 146 mg/dl (< 200 Desired); Glucose 108 mg/dL (83-110); HDL Cholesterol 61 mg/dL (>60 Neg Risk); LDL Cholesterol, Calculated 68 mg/dL; Magnesium 2.1 mg/dL (1.6-2.6); Potassium 3.9 mmol/L (3.5-5.1); Sodium 139 mmol/L (136-145); Triglycerides 85 mg/dL (Less than 150)
[2025-01-30] MEDS: Aspirin Chewable 81 MG TAB PO SCH (08:36)
[2025-01-30] MEDS: Enoxaparin 80 MG (0.8 mL) SYRINGE SC SCH (15:08)
[2025-01-30 16:15] VITALS: BMI 27.3
[2025-01-30] MEDS ORDERED: Communication Order-Pharmacy FS SCH (16:30)
[2025-01-30] MEDS: Acetaminophen 325 MG TAB PO PRN (17:51)
[2025-01-30] MEDS: Metoprolol Succinate XL 25 MG ER.TAB PO SCH (20:45)
[2025-01-31 05:17] LABS: #Basophils 0.03 10x3/uL (0.0-0.2); #Eosinophils 0.05 10x3/uL (0.0-0.7); #Monocytes 0.50 10x3/uL (0.11-0.59); #Neutrophils 3.14 10x3/uL (1.40-6.50); %Basophils 0.5 % (0.0-1.0); %Eosinophils 0.9 % (0.0-10.0); %Lymphocytes 31.6 % (21.0-51.0); %Monocytes 9.1 % (0.0-10.0); %Neutrophils 57.5 % (42.0-75.0); Hematocrit 32.8 % (36.0-47.0); Hemoglobin 10.6 g/dL (12.0-16.0); Mean Corpuscular Hemoglobin 28.6 pg (27.0-31.0); Mean Corpuscular Volume 88.6 fL (78.0-98.0); Platelet Count 129 10x3/uL (130-400); Red Blood Cell (RBC) Count 3.70 mill/uL (4.20-5.40); White Blood Cell (WBC) Count 5.47 10x3/uL (4.8-10.8)
[2025-01-31 05:36] LABS: Anion Gap 17 mmol/L (10-20); BUN (Urea Nitrogen) 18 mg/dL (9.8-20.1); Calc. Creatinine Clearance 62 mL/min (70-130); Calcium 8.8 mg/dL (7.8-10.44); Carbon Dioxide 24 mmol/L (23-31); Chloride 103 mmol/L (98-107); Glucose 95 mg/dL (83-110); Potassium 3.9 mmol/L (3.5-5.1); Sodium 140 mmol/L (136-145)
[2025-01-31] MEDS ORDERED: Heparin 10,000 UNITS/ 10 ML VIAL ONE (07:38)
[2025-01-31] MEDS ORDERED: Nitroglycerin 50 MG/250 ML BOT 250 ML ONE (07:38)
[2025-01-31] MEDS ORDERED: Adenosine 6 mg (2 mL) VIAL ONE (07:38)
[2025-01-31] MEDS ORDERED: Lidocaine 1% (PF) 30 ML VIAL ONE (07:38)
[2025-01-31] MEDS: Multivit, Therapeutic 1 TAB PO SCH (07:58)
[2025-01-31] MEDS ORDERED: Ondansetron PF 4 MG/2 ML Vial ONE (08:26)
[2025-01-31] MEDS ORDERED: Iopamidol 370 76% 100 ML VIAL ONE (10:21)
[2025-01-31] MEDS: Simethicone Chewable 80 MG TAB PO PRN (20:03)
[2025-02-01 05:01] LABS: #Basophils Less than 0.03 10x3/uL (0.0-0.2); #Eosinophils 0.07 10x3/uL (0.0-0.7); #Monocytes 0.48 10x3/uL (0.11-0.59); #Neutrophils 2.80 10x3/uL (1.40-6.50); %Basophils 0.4 % (0.0-1.0); %Eosinophils 1.4 % (0.0-10.0); %Lymphocytes 30.3 % (21.0-51.0); %Monocytes 9.9 % (0.0-10.0); %Neutrophils 57.8 % (42.0-75.0); Hematocrit 30.3 % (36.0-47.0); Hemoglobin 9.8 g/dL (12.0-16.0); Mean Corpuscular Hemoglobin 28.7 pg (27.0-31.0); Mean Corpuscular Volume 88.9 fL (78.0-98.0); Platelet Count 125 10x3/uL (130-400); Red Blood Cell (RBC) Count 3.41 mill/uL (4.20-5.40); White Blood Cell (WBC) Count 4.85 10x3/uL (4.8-10.8)
[2025-02-01 05:15] LABS: Anion Gap 12 mmol/L (10-20); BUN (Urea Nitrogen) 10 mg/dL (9.8-20.1); Calc. Creatinine Clearance 88 mL/min (70-130); Calcium 8.2 mg/dL (7.8-10.44); Carbon Dioxide 23 mmol/L (23-31); Chloride 110 mmol/L (98-107); Glucose 90 mg/dL (83-110); Potassium 3.6 mmol/L (3.5-5.1); Sodium 141 mmol/L (136-145)
[2025-02-01] MEDS: Ferrous Gluconate 324 MG TAB PO SCH (10:11)
[2025-02-01] MEDS: Methocarbamol 500 MG TAB PO SCH ×2 (16:09→20:17)
[2025-02-02 04:58] LABS: #Basophils Less than 0.03 10x3/uL (0.0-0.2); #Eosinophils 0.08 10x3/uL (0.0-0.7); #Monocytes 0.35 10x3/uL (0.11-0.59); #Neutrophils 3.30 10x3/uL (1.40-6.50); %Basophils 0.4 % (0.0-1.0); %Eosinophils 1.4 % (0.0-10.0); %Lymphocytes 32.3 % (21.0-51.0); %Monocytes 6.3 % (0.0-10.0); %Neutrophils 59.2 % (42.0-75.0); Hematocrit 31.7 % (36.0-47.0); Hemoglobin 10.4 g/dL (12.0-16.0); Mean Corpuscular Hemoglobin 29.5 pg (27.0-31.0); Mean Corpuscular Volume 89.8 fL (78.0-98.0); Platelet Count 150 10x3/uL (130-400); Red Blood Cell (RBC) Count 3.53 mill/uL (4.20-5.40); White Blood Cell (WBC) Count 5.57 10x3/uL (4.8-10.8)
[2025-02-02 05:17] LABS: Anion Gap 10 mmol/L (10-20); BUN (Urea Nitrogen) 8 mg/dL (9.8-20.1); Calc. Creatinine Clearance 77 mL/min (70-130); Calcium 8.8 mg/dL (7.8-10.44); Carbon Dioxide 24 mmol/L (23-31); Chloride 112 mmol/L (98-107); Glucose 93 mg/dL (83-110); Potassium 3.6 mmol/L (3.5-5.1); Sodium 142 mmol/L (136-145)
[2025-02-02 10:36] VITALS: BP 117/60; TEMP 98
== END 2025-02-02 12:17 | disposition home or self-care (01) | DRG 287 ==
LOC: ERS 14:33 → OBS 17:22 → OBSVTOIN 01-30 16:07
PROVIDERS: ADMIT Internal Medicine; ATTEND Hospitalist
PROC: 4A023N7 Measurement of Cardiac Sampling and Pressure, Left Heart, Percutaneous Approach (ICD-10-PCS; principal; 2025-01-30)
PROC: B2111ZZ Fluoroscopy of Multiple Coronary Arteries using Low Osmolar Contrast (ICD-10-PCS; 2025-01-30)
PROC: B2151ZZ Fluoroscopy of Left Heart using Low Osmolar Contrast (ICD-10-PCS; 2025-01-30)
DX: R07.89 Other chest pain (principal); I25.10 Atherosclerotic heart disease of native coronary artery without angina pectoris; E03.9 Hypothyroidism, unspecified; G89.29 Other chronic pain; Z88.8 Allergy status to other drugs, medicaments and biological substances; I10 Essential (primary) hypertension; Z79.899 Other long term (current) drug therapy; Z95.5 Presence of coronary angioplasty implant and graft; I25.82 Chronic total occlusion of coronary artery; G62.9 Polyneuropathy, unspecified; Z88.5 Allergy status to narcotic agent; M54.50 Low back pain, unspecified; Z90.710 Acquired absence of both cervix and uterus; Z90.49 Acquired absence of other specified parts of digestive tract; E78.00 Pure hypercholesterolemia, unspecified; R42 Dizziness and giddiness; R10.9 Unspecified abdominal pain
CPT/HCPCS: 36415; 36416; 70450; 71045; 72125; 76705; 80048; 80053; 80061; 83690; 83735; 84484; 85025; 93005; 93010; 93306; 93458; 94760; 96372; 99152; 99153; C1769; C1894; G0378; J0153; J1644; J1650; J2250; J2405; J7030; Q9967